=== PATIENT | male | born 1955 | race Caucasian/White ===

== ENCOUNTER 2018-11-25 19:43 | Inpatient (IN) | payer OTHER | END 2018-12-03 18:25 | LOC: OVERFLOW 19:44 → ER 19:43 → WEST WING 11-26 05:14 → EAST 11-26 13:34 | DX: A41.9 Sepsis, unspecified organism (principal); J44.1 Chronic obstructive pulmonary disease with (acute) exacerbation; J45.901 Unspecified asthma with (acute) exacerbation; F31.9 Bipolar disorder, unspecified ==

== ENCOUNTER 2019-11-16 15:02 | Emergency (ER) | payer OTHER ==
[~2019-11-16] VITALS: Ht 177.8 cm; Wt 81.6 kg
[2019-11-16 15:40] VITALS: BP 139/78
== END 2019-11-16 17:25 ==
LOC: ER 15:02 → EDUNIT# 15:02 → EDBD 15:02 → ER 17:25
DX: S02.40CA Maxillary fracture, right side, initial encounter for closed fracture (principal); J44.9 Chronic obstructive pulmonary disease, unspecified; I10 Essential (primary) hypertension; S02.85XA Fracture of orbit, unspecified, initial encounter for closed fracture; W18.00XA Striking against unspecified object with subsequent fall, initial encounter; Y93.89 Activity, other specified; Y92.89 Other specified places as the place of occurrence of the external cause; Y99.8 Other external cause status
CPT/HCPCS: 70450; 70480; 72125

== ENCOUNTER → 2020-01-11 | Day surgery (SDC) | payer OTHER | END | disposition home or self-care (01) | LOC: GI 07:07 | PROVIDERS: ATTEND Internal Medicine Gastroenterology | DX: Z01.818 Encounter for other preprocedural examination (principal); K62.5 Hemorrhage of anus and rectum; Z88.8 Allergy status to other drugs, medicaments and biological substances; Z98.890 Other specified postprocedural states; Z79.899 Other long term (current) drug therapy ==